=== PATIENT | female | born 1950 | race Caucasian/White ===

== ENCOUNTER 2017-12-13 12:19 | Outpatient (CLI) | payer MEDICARE | END 2017-12-13 12:20 | disposition home or self-care (01) | LOC: BICRAD 12:19 | PROVIDERS: ATTEND Nurse Practitioner Family | DX: R06.02 Shortness of breath (principal) | CPT/HCPCS: 71046 ==

== ENCOUNTER 2018-07-12 11:59 | Outpatient (CLI) | payer MEDICARE | END 2018-07-12 12:00 | disposition home or self-care (01) | LOC: BICRAD 11:59 | PROVIDERS: ATTEND Nurse Practitioner Family | DX: M25.511 Pain in right shoulder (principal); I10 Essential (primary) hypertension; M19.011 Primary osteoarthritis, right shoulder ==

== ENCOUNTER 2019-02-03 12:30 | Outpatient (CLI) | payer MEDICARE ==
--- NOTE | 2019-02-03 15:11 | MRI ---
LEFT KNEE MRI WITHOUT IV CONTRAST: Date: 02/03/19 HISTORY: Internal derangement left knee, left knee pain following a fall. TECHNIQUE: Multiplanar, multisequence MRI examination of the left knee is performed. FINDINGS: There is evidence of a flap tear involving the medial meniscus, posterior horn, and body region. Late ral meniscus is unremarkable. Anterior and posterior cruciate ligament, collateral ligament complexes , and quadriceps and patellar tendons are intact. Physiologic joint fluid. No significant acute osteo chondral defect or abnormal marrow signal. IMPRESSION: Evidence for flap tear involving the medial meniscus, primarily the body. No evidence for other signi ficant acute internal derangement. POS: [facility]
== END 2019-02-03 12:31 | disposition home or self-care (01) ==
LOC: SCSMRI 12:30
PROVIDERS: ATTEND Orthopaedic Surgery
DX: M23.92 Unspecified internal derangement of left knee (principal); S83.242A Other tear of medial meniscus, current injury, left knee, initial encounter

== ENCOUNTER → 2019-02-12 | Day surgery (SDC) | payer MEDICARE ==
--- NOTE | 2019-02-11 08:57 | HP ---
HISTORY OF PRESENT ILLNESS: The patient is a 68-year-old female, who has a several-month history of problems with her left knee, which initially began after slipping and misstepping at home and then twisted again while throwing a football to her grandson. She has had persistent pain, swelling, and difficulty despite rest, restriction of activities, use of anti-inflammatory medications, and previous cortisone injection, which gave only partial relief. PAST MEDICAL HISTORY: The patient has a history of hypertension. She has had difficulty tolerating NSAIDs because of effect on her blood pressure. She has had a carpal tunnel release. CURRENT MEDICATIONS: Include: 1. Aleve. 2. Buspirone. 3. Chlorthalidone. 4. Clonidine. 5. Tramadol. ALLERGIES: SHE IS ALLERGIC TO AMPICILLIN. FAMILY HISTORY: Otherwise, unremarkable. SOCIAL HISTORY: Otherwise, unremarkable. REVIEW OF SYSTEMS: Otherwise, unremarkable. PHYSICAL EXAMINATION: GENERAL: Reveals a healthy female. HEENT: Unremarkable. NECK: Supple. CHEST: Clear. HEART: Regular rate and rhythm. ABDOMEN: Soft and nontender. PELVIC: Deferred. RECTAL: Deferred. BREASTS: Deferred. EXTREMITIES: Pertinent findings related to left knee. There is no definite effusion. No swelling. There is normal alignment. There is tenderness over the medial joint line. There is pain with Rebel's maneuver. Range of motion is 0 to 120 degrees, which is painful. There is no instability. Pulses are 1+. NEUROVASCULAR: Intact. There is a slight right antalgic gait. DIAGNOSTIC STUDIES: X-rays of the right knee reveal minimal degenerative changes. MRI scan of the left knee reveals a flap tear involving the body of the medial meniscus. IMPRESSION: Internal derangement of left knee with probable medial meniscal tear. PLAN: Arthroscopy of left knee with partial medial meniscectomy and/or debridement and shaving. The nature of the surgery, length of recovery, and potential complications such as infection, loss of motion, incomplete relief, thromboembolic phenomena, neurovascular injury, posttraumatic degenerative arthritis, recurrent tear, and need for additional treatment and repeat surgery have been discussed in detail. Job ID: [id number]
[2019-02-11 12:47] VITALS: BMI 23.6
[~2019-02-12] MED LIST: Bupivacaine HCl 0.5%/Epinephrine 1:200,000/PF 30 ml Vial ONE; Clindamycin/D5W 900 mg/50 ml Premix Bag ONE; Dexamethasone 20 MG/5 ML VIAL ONE; Fentanyl 100 MCG/2 ML VIAL ONE; HYDROcodone/Acetaminophen 5/325 mg Tablet ONE; Ketorolac Tromethamine 30 MG/ML VIAL ONE; Lidocaine 1% PF 5 ML VIAL ONE; Ondansetron PF 4 MG/2 ML Vial ONE; PROPOFOL 200 MG/20 ML VIAL ONE
[2019-02-12 08:29] LABS: #Basophils 0.1 thou/uL (0.0-0.2); #Eosinphils 0.1 thou/uL (0.0-0.7); #Lymphocytes 1.8 thou/uL (1.20-3.40); #Monocytes 0.5 thou/uL (0.11-0.59); #Neutrophils 2.9 thou/uL (1.40-6.50); %Basophils 1.2 % (0.0-1.0); %Eosinophils 2.6 % (0.0-10.0); %Lymphocytes 32.4 % (21.0-51.0); %Monocytes 9.6 % (0.0-10.0); %Neutrophils 54.2 % (42.0-75.0); Hemoglobin 13.4 g/dL (12.0-16.0); Mean Corpuscular HGB CONC 34.8 g/dL (32.0-36.0); Mean Corpuscular Hemoglobin 30.1 pg (27.0-31.0); Mean Corpuscular Volume 86.7 fL (78.0-98.0); Mean Platelet Volume 7.7 fL (7.4-10.4); Platelet Count 328 thou/uL (130-400); RBC Distribution Width 11.7 % (11.5-14.5); Red Blood Cell (RBC) Count 4.44 mill/uL (4.20-5.40); White Blood Cell (WBC) Count 5.4 thou/uL (4.8-10.8)
[2019-02-12 08:51] LABS: Anion Gap 10 mmol/L (10-20); BUN (Urea Nitrogen) 7 mg/dL (9.8-20.1); Calc. Creatinine Clearance 77 mL/min (70-130); Carbon Dioxide 30 mmol/L (23-31); Chloride 101 mmol/L (98-107); Estimated GFR-MDRD Greater than 90; Glucose 103 mg/dL (80-115); Sodium 138 mmol/L (136-145)
[2019-02-12 08:56] LABS: Potassium 2.9 mmol/L (3.5-5.1)
--- NOTE | 2019-02-12 14:14 | OP ---
DATE OF PROCEDURE: 02/12/2019 PREOPERATIVE DIAGNOSES: Medial meniscal tear and degenerative joint disease, left knee. POSTOPERATIVE DIAGNOSES: Medial meniscal tear and degenerative joint disease, left knee. PROCEDURES PERFORMED: Arthroscopy of left knee with partial medial meniscectomy and shaving of medial femoral condyle. ANESTHESIA: General. OPERATIVE FINDINGS: Examination under anesthesia revealed the knee to be stable. In arthroscopy, there was grade 1 chondromalacia of the patella. Examination of the medial compartment revealed a complex tear of the posterior horn of the medial meniscus with a flap component. There was also approximately a 1 x 2 cm chondral defect in the weightbearing surface of the medial femoral condyle, which was almost full thickness and it was almost down to subchondral bone. This was more pronounced than what appear on x-ray and MRI scan. ACL was intact. Lateral meniscus was intact. Lateral compartment was normal. DESCRIPTION OF PROCEDURE: After satisfactory anesthesia was induced in supine position, the patient was placed in a leg mary and prepped and draped in the routine manner. The left leg was elevated and exsanguinated with an Esmarch bandage and the tourniquet inflated to 250 mmHg. Seaton arthroscope was introduced through the anterolateral portal, probed through the anteromedial portal and inflow and outflow accomplished through the scope using a [employer] arthroscopy pump. Arthroscopy was carried out and the above findings were noted. All findings were documented with the video printer and hard copies were made. Posterior horn of the medial meniscus was debrided with the use of basket forceps and motorized shaver. The remaining rim was balanced and contoured and probed and found to be stable. There was still an intact rim of 3 to 4 mm. The medial femoral condyle was debrided with a motorized shaver of all fibrillated cartilage. The scope was then reintroduced in anteromedial compartment and all compartments were visualized and no additional pathology found. The knee was copiously irrigated through the scope and all instruments were withdrawn. 20 mL of 0.5% Marcaine with epinephrine was instilled into the knee joint and additional 10 mL injected about the portal sites. Portal sites were closed with 3-0 nylon. A sterile bulky compressive dressing was applied and the tourniquet deflated after 17 minutes. The foot promptly pinked up and the patient was awakened, taken to the recovery room in stable condition. There were no apparent intraoperative complications. The estimated blood loss was negligible. The patient will be discharged home in satisfactory condition, started on ice, elevation, use of crutches or walker, home exercise program with Physical Therapy Department. She was given written wound care instructions and a prescription for Valera 5 for pain, 30 tablets. She will recheck in my office in 10 to 14 days or sooner if there are any problems prior to that time. Job ID: [id number]
--- NOTE | 2019-02-12 16:50 | EKG ---
Test Reason : PREOP Blood Pressure : / mmHG Vent. Rate : 053 BPM Atrial Rate : 053 BPM P-R Int : 152 ms QRS Dur : 092 ms QT Int : 458 ms P-R-T Axes : 024 015 031 degrees QTc Int : 429 ms Sinus bradycardia Otherwise normal ECG When compared with ECG of 07-MAR-2017 12:41, No significant change was found Confirmed by BLU BLUNT, SCass ([id number]) on 02/12/2019 4:50:12 PM Referred By: ALLEN Confirmed By:DR. Allan HURT MD
== END ==
LOC: SDC 06:59
PROVIDERS: ATTEND Orthopaedic Surgery
PROC: 0SBD4ZZ Excision of Left Knee Joint, Percutaneous Endoscopic Approach (ICD-10-PCS; principal; 2019-02-12)
DX: S83.232A Complex tear of medial meniscus, current injury, left knee, initial encounter (principal); M17.12 Unilateral primary osteoarthritis, left knee; M22.42 Chondromalacia patellae, left knee; I10 Essential (primary) hypertension; Z88.0 Allergy status to penicillin; Z79.899 Other long term (current) drug therapy; Z98.890 Other specified postprocedural states; X50.1XXA Overexertion from prolonged static or awkward postures, initial encounter
CPT/HCPCS: 36415; 80048; 85025; 93005; 93010; J0670; J1100; J1885; J2001; J2405; J2704; J3010; J3490

== ENCOUNTER 2020-04-22 12:53 | Outpatient (CLI) | payer MEDICARE ==
--- NOTE | 2020-04-22 15:46 | RAD ---
TWO VIEW CHEST: 04/22/20 HISTORY: Shortness of breath. COMPARISON: Comparison to a portable chest from 03/07/17. There is mild interstitial prominence bilaterally which appears more prominent. Tiny nodules in the r ight upper lung appear calcified and probably represent scarring. There is mild apical pleural thicke juan. Mild stranding in the left lung as well with some subtle nodularity. Heart size is upper normal and stable. Vasculature normal. Osseous structures unremarkable. IMPRESSION: Mild diffuse interstitial thickening. Some stranding and nodularity in the upper lungs and apical reg ions. Technologist gives an additional history of asbestos exposure. Suggest correlation with pulmona ry function test and follow-up chest CT as indicated. POS: [facility]
== END 2020-04-22 12:54 | disposition home or self-care (01) ==
LOC: BICRAD 12:53
PROVIDERS: ATTEND Nurse Practitioner Family
DX: R06.02 Shortness of breath (principal); J98.4 Other disorders of lung
CPT/HCPCS: 71046

== ENCOUNTER 2020-09-27 12:59 | Outpatient (CLI) | payer MEDICARE ==
--- NOTE | 2020-09-27 13:40 | RAD ---
XR Chest Pa Lat STANDARD History: Dyspnea Comparison: Radiograph April 2020 Findings: Biapical pleural scarring is present. No confluent airspace consolidation, pneumothorax or effusion. Upper thoracic spine compression deformity likely of T5 is similar. Cardiac silhouette and mediastinal contours are within normal limits. Impression: No acute intrathoracic abnormality. Similar appearance of the chest.
== END 2020-09-27 13:00 | disposition home or self-care (01) ==
LOC: BICRAD 12:59
PROVIDERS: ATTEND Internal Medicine Pulmonary Disease
DX: R06.00 Dyspnea, unspecified (principal)
CPT/HCPCS: 71046

== ENCOUNTER 2020-09-27 13:14 | Outpatient (CLI) | payer MEDICARE ==
--- NOTE | 2020-09-27 16:32 | MMO ---
Bilateral MAMMO Bilat Screen [facility]. CLINICAL HISTORY: Patient is 70 years old and is seen for screening. The patient has the following family history of breast cancer: aunt, at age 58 and 2 maternal aunts. The patient has no personal history of cancer. VIEWS: The views performed were: bilateral craniocaudal with tomosynthesis and bilateral mediolateral oblique with tomosynthesis. FILMS COMPARED: The present examination has been compared to a prior imaging study performed at [facility] on 08/27/2015. This study has been interpreted with the assistance of computer-aided detection. MAMMOGRAM FINDINGS: There are scattered fibroglandular densities. There are benign appearing and vascular calcifications seen in both breasts. There are no suspicious masses, suspicious calcifications, or new areas of architectural distortion. IMPRESSION: THERE IS NO MAMMOGRAPHIC EVIDENCE OF MALIGNANCY. A ROUTINE FOLLOW-UP MAMMOGRAM IN 1 YEAR IS RECOMMENDED. THE RESULTS OF THIS EXAM WERE SENT TO THE PATIENT. ACR BI-RADS Category 2 - Benign finding MAMMOGRAPHY NOTE: 1. A negative mammogram report should not delay a biopsy if a dominant of clinically suspicious mass is present. 2. Approximately 10% to 15% of breast cancers are not detected by mammography. 3. Adenosis and dense breasts may obscure an underlying neoplasm. Reported by: JULIA MOYER MD Electonically Signed: [id number]
== END 2020-09-27 13:15 | disposition home or self-care (01) ==
LOC: BICMAMMO 13:14
PROVIDERS: ATTEND Nurse Practitioner Family
DX: Z12.31 Encounter for screening mammogram for malignant neoplasm of breast (principal); Z80.3 Family history of malignant neoplasm of breast
CPT/HCPCS: 77063; 77067

== ENCOUNTER 2021-08-16 10:31 | Emergency (ER) | payer MEDICARE ==
[2021-08-16] MEDS ORDERED: HYDROcodone/Acetaminophen 5/325 mg Tablet ONE (11:58)
[2021-08-16] MEDS ORDERED: Acetaminophen 325 MG TAB ONE (11:58)
== END 2021-08-16 12:15 | disposition home or self-care (01) ==
LOC: ERS 10:31
DX: M25.462 Effusion, left knee (principal); Z79.899 Other long term (current) drug therapy; I10 Essential (primary) hypertension
CPT/HCPCS: 99283

== ENCOUNTER 2022-06-14 15:37 | Outpatient (CLI) | payer MEDICARE | END 2022-06-14 15:38 | disposition home or self-care (01) | LOC: BICRAD 15:37 | PROVIDERS: ATTEND Internal Medicine | DX: I10 Essential (primary) hypertension (principal) | CPT/HCPCS: 71046 ==

== ENCOUNTER 2022-09-28 11:43 | Outpatient (CLI) | payer MEDICARE | END 2022-09-28 11:44 | disposition home or self-care (01) | LOC: BICRAD 11:43 | PROVIDERS: ATTEND Internal Medicine | DX: R06.00 Dyspnea, unspecified (principal); Z86.79 Personal history of other diseases of the circulatory system | CPT/HCPCS: 71046 ==

== ENCOUNTER 2022-10-16 11:44 | Emergency (ER) | payer MEDICARE | END 2022-10-16 15:12 | disposition home or self-care (01) | LOC: ERS 11:44 | DX: R51.9 Headache, unspecified (principal) | CPT/HCPCS: 70450 ==

== ENCOUNTER 2024-05-01 10:26 | Outpatient (CLI) | payer OTHER | END 2024-05-01 10:27 | disposition home or self-care (01) | LOC: BICRAD 10:26 | PROVIDERS: ATTEND Internal Medicine | DX: M54.42 Lumbago with sciatica, left side (principal); M47.816 Spondylosis without myelopathy or radiculopathy, lumbar region | CPT/HCPCS: 72100 ==

== ENCOUNTER 2024-08-01 11:39 | Outpatient (CLI) | payer OTHER | END 2024-08-01 11:40 | disposition home or self-care (01) | LOC: BICRAD 11:39 | PROVIDERS: ATTEND Neurological Surgery | DX: S32.030A Wedge compression fracture of third lumbar vertebra, initial encounter for closed fracture (principal) | CPT/HCPCS: 72100 ==

== ENCOUNTER 2024-09-09 14:05 | Outpatient (CLI) | payer OTHER | END 2024-09-09 14:06 | disposition home or self-care (01) | LOC: BICRAD 14:05 | PROVIDERS: ATTEND Physician Assistant | DX: S32.030A Wedge compression fracture of third lumbar vertebra, initial encounter for closed fracture (principal); S32.031A Stable burst fracture of third lumbar vertebra, initial encounter for closed fracture | CPT/HCPCS: 72100 ==